=== PATIENT | male | born 1960 | race Caucasian/White ===

== ENCOUNTER → 2017-06-20 | Outpatient (CLI) | payer MEDICARE ==
--- NOTE | 2017-06-20 12:46 | RADIOLOGY REPORT (SQ) ---
EXAM DESCRIPTION: MRI LUMBAR SPINE WITHOUT COMPLETED DATE/TIME: 06/20/2017 9:56 am REASON FOR STUDY: POSTLAMINECTOMY SYNDRONE COMPARISON: None. TECHNIQUE: Sagittal and Axial imaging includes T1, T2, STIR and gradient echo sequences. Coronal T2/ HASTE imaging. LIMITATIONS: None. FINDINGS: VISUALIZED UPPER ABDOMEN: Limited evaluation. No acute or suspicious findings suggested. SEGMENTATION: No transitional anatomy. The lowest well-developed disc space is labeled L5-S1. ALIGNMENT: Slight scoliotic curve. VERTEBRAE: Intact. BONE MARROW: Normal. No marrow replacement or reactive changes. DISC SIGNAL: Postoperative artifact at the L4-5 and L5-S1 levels. Other levels show mild disc space narrowing. Detailed below. POSTERIOR ELEMENTS: Status post instrumented dorsal decompression at L4-5 and L5-S1. HARDWARE: Posterior rods and screws span L4 through S1 bilaterally with disc fixation artifacts. CORD AND CONUS: Normal in size and signal intensity. Conus at the appropriate level. SOFT TISSUES: No aortic aneurysm seen. No bulky retroperitoneal adenopathy or mass. No paraspinal mas s or fluid. L1-L2: Broad disc bulge mildly flattens the ventral thecal sac. Mild central narrowing. L2-L3: Posterior ligament thickening and facet overgrowth with no significant central or foraminal co mpromise. L3-L4: Broad mild disc bulge. Facet overgrowth. Mild -moderate transverse dimension central canal n arrowing with up to moderate bilateral foraminal stenosis. L4-L5: Operative level with associated somewhat limiting artifact. No gross stenosis. L5-S1: Operative level with somewhat limiting artifact. Suspect moderate foraminal stenosis. LOWER THORACIC: Disc disease without cord compression. SACRUM: Visualized upper sacrum intact. OTHER: No other significant findings. IMPRESSION: 1. Postoperative and degenerative changes. No high-grade stenosis identified. TECHNICAL DOCUMENTATION: JOB ID: [id number] [employer]- All Rights Reserved
== END ==
LOC: RAD 10:53
PROVIDERS: ATTEND Physician Assistant
DX: M96.1 Postlaminectomy syndrome, not elsewhere classified (principal); M51.17 Intervertebral disc disorders with radiculopathy, lumbosacral region
CPT/HCPCS: 72148

== ENCOUNTER → 2017-08-17 | Outpatient (CLI) | payer MEDICARE ==
--- NOTE | 2017-08-17 14:47 | RADIOLOGY REPORT (SQ) ---
EXAM DESCRIPTION: MRI CERVICAL SPINE WITHOUT COMPLETED DATE/TIME: 08/17/2017 1:17 pm REASON FOR STUDY: CERVICAL RADICULOPATHY (M54.12), CERVICALGIA (M54.2) M54.2 CERVICALGIA M54.12 RA DICULOPATHY, CERVICAL REGION COMPARISON: None. TECHNIQUE: Sagittal and Axial imaging includes T1, T2, STIR and gradient echo sequences. LIMITATIONS: None. FINDINGS: ALIGNMENT: Normal. VERTEBRAE: Intact. BONE MARROW: Normal. No marrow replacement or reactive changes. DISCS: Normal. No significant abnormal signal or loss of height. HARDWARE: None in the spine. CORD AND BASE OF BRAIN: Normal in size and signal intensity. SOFT TISSUES: No soft tissue masses. C1-C2: No significant spinal stenosis. C2-C3: No significant spinal stenosis or exit foraminal stenosis. C3-C4: Uncovertebral spurring on the right with moderate right exit foraminal stenosis. No significa nt spinal stenosis. C4-C5: No significant spinal stenosis or exit foraminal stenosis. C5-C6: Bilateral uncovertebral spurring with moderate exit foraminal stenosis. Mild posterior disc a nd osteophyte with borderline spinal stenosis. C6-C7: Uncovertebral spurring with moderate left exit foraminal stenosis. Mild posterior disc and os teophyte with borderline spinal stenosis. C7-T1: No significant spinal stenosis or exit foraminal stenosis. UPPER THORACIC: Incompletely imaged. No significant spinal stenosis or exit foraminal stenosis. OTHER: No other significant finding. IMPRESSION: MULTILEVEL DEGENERATIVE CHANGES DESCRIBED ABOVE. TECHNICAL DOCUMENTATION: JOB ID: [id number] [email or web address]- All Rights Reserved Reading location - IP/workstation name: [facility]
== END ==
LOC: RAD 12:15
PROVIDERS: ATTEND Physician Assistant
DX: M54.2 Cervicalgia (principal); M54.12 Radiculopathy, cervical region
CPT/HCPCS: 72141